=== PATIENT | female | born 1965 | race Caucasian/White ===

== ENCOUNTER 2017-07-20 12:34 | Emergency (ER) | payer OTHER ==
[~2017-07-20] VITALS: Ht 160 cm; Wt 84.8 kg
[2017-07-20 12:40] VITALS: BP 146/76
--- NOTE | 2017-07-20 14:32 | ED GI/GU/ABDOMINAL COMPLAINT ---
History of Present Illness General Chief Complaint: General Adult Stated Complaint: RT RIB PAIN Source: patient Exam Limitations: no limitations Vital Signs & Intake/Output Vital Signs & Intake/Output Vital Signs Date Time Temp Pulse Resp B/P B/P Pulse O2 O2 Flow FiO2 Mean Ox Delivery Rate 07/20 1537 Room Air 07/20 1240 97.1 86 20 146/76 98 Room Air Allergies Coded Allergies: NO KNOWN ALLERGIES (05/09/16) Reconcile Medications Cholecalciferol (Vitamin D3) 1,000 UNIT TABLET 1 TAB PO DAILY VITAMIN SUPPORT (Reported) Hydroxychlorquine (Plaquenil) 200 MG TABLET 1 TAB PO BID LUPUS (Reported) Methylprednisolone. (Medrol) 4 MG TAB.DS.PK 1 DP PO AD SHINGLES 6 on day 1 then reduce by one tablet daily until gone Multivitamin (Daily Multiple Vitamin) 1 EACH TABLET 1 TAB PO DAILY VITAMIN SUPPORT (Reported) Valacyclovir HCl (Valtrex) 1,000 MG TABLET 1 TAB PO TID SHINGLES Triage Note: PT TO ED FOR RUQ PAIN SINCE LAST NIGHT. WENT TO HER MD AND WAS SENT TO ED FOR EVAL. DENIES N/V/D. DENIES LUMA S/S. EVAL. DENIES N/V/D. DENIES LUMA S/S. Triage Nurses Notes Reviewed? yes ? n Is pt currently ? No Onset: Abrupt Duration: minute(s): (last night), day(s): Timing: recent history Quality/Severity: moderate, sharpness Location: right upper quadrant Activities at Onset: none Prior Abdominal Problems: none No Modifying Factors: none HPI: 51-year-old female comes into the emergency room for further evaluation of right upper abdominal pain. Symptoms been going on since last night. No fever. No chills. No vomiting. Denies any change in bowel movement. Denies any shortness of breath. Nothing seems to make the symptoms better or worse. Denies any rash. Comes in for further evaluation. (Thomas Gillespie) Past History Travel History Traveled to [place] past 21 day No Medical History Any Pertinent Medical History? see below for history Musculoskeletal: rheumatoid arthritis Endocrine: thyroid issue Surgical History Surgical History: No abdominal surgeries Psychosocial History What is your primary language Macanese Tobacco Use: Never used ETOH Use: denies use Illicit Drug Use: denies illicit drug use Family History Hx Contributory? No (Thomas Gillespie) Review of Systems Review of Systems Constitutional: Reports: no symptoms. EENTM: Reports: no symptoms. Respiratory: Reports: no symptoms. Cardiovascular: Reports: no symptoms. GI: Reports: see HPI. Genitourinary: Reports: no symptoms. Musculoskeletal: Reports: no symptoms. Skin: Reports: no symptoms. Neurological/Psychological: Reports: no symptoms. Hematologic/Endocrine: Reports: no symptoms. Immunologic/Allergic: Reports: no symptoms. All Other Systems: Reviewed and Negative (Thomas Gillespie) Physical Exam Physical Exam General Appearance: well developed/nourished, alert, awake, mild distress Head: atraumatic Eyes: Bilateral: normal appearance. Ears, Nose, Throat, Mouth: hearing grossly normal, moist mucous membrane Neck: normal inspection Respiratory: normal breath sounds, no respiratory distress Cardiovascular: regular rate/rhythm Gastrointestinal: soft, tenderness right side of abdomen, no guarding, no rebound tenderness, Back: normal inspection Neurologic/Psych: awake, alert, oriented x 3 Skin: intact, normal color, no rash appreciated over skin Core Measures ACS in differential dx? No Sepsis Present: No Sepsis Focused Exam Completed? No (Thomas Gillespie) Progress Differential Diagnosis: appendicitis, biliary colic, cholecystitis, diverticulitis, gastritis, peptic ulcer, SBO, UTI/pyelo, shingles, pe Plan of Care: Orders Procedure Date/time Status LIPASE 07/20 1431 Complete COMPREHENSIVE METABOLIC PANEL 07/20 1431 Complete CBC WITHOUT DIFFERENTIAL 07/20 1431 Complete AMYLASE 07/20 1431 Complete URINALYSIS 07/20 1317 Complete Laboratory Tests 07/20/17 1436: Anion Gap 10, Estimated GFR > 60, BUN/Creatinine Ratio 18.8, Glucose 98, Calcium 9.4, Total Bilirubin 0.5, AST 28, ALT 32, Alkaline Phosphatase 58, Total Protein 7.3, Albumin 4.1, Globulin 3.2, Albumin/Globulin Ratio 1.3, Amylase 53, Lipase 108, CBC w Diff NO MAN DIFF REQ, RBC 4.86, MCV 82.2, MCH 28.3, MCHC 34.4, RDW 14.0, MPV 7.3 L, Gran % 70.5, Lymphocytes % 19.2 L, Monocytes % 7.2, Eosinophils % 2.8, Basophils % 0.3, Absolute Granulocytes 5.4, Absolute Lymphocytes 1.5, Absolute Monocytes 0.6, Absolute Eosinophils 0.2, Absolute Basophils 0 07/20/17 1320: Urine Color YEL, Urine Clarity HAZY H, Urine pH 7.5, Ur Specific [place] 1.020, Urine Protein NEG, Urine Ketones NEG, Urine Nitrite NEG, Urine Bilirubin NEG, Urine Urobilinogen 0.2, Ur Leukocyte Esterase NEG, Ur Microscopic SEDIMENT EXAMINED, Urine RBC RARE, Urine WBC RARE, Urine Hemoglobin NEG, Urine Glucose NEG Diagnostic Imaging: Viewed by Me: CT Scan. Discussed w/RAD: CT Scan. Radiology Impression: PATIENT: JESSICA SOTO PRESENT AGE: 51 PATIENT ACCOUNT NO: [id number] : 63 LOCATION: [facility] ORDERING PHYSICIAN: Thomas FINLEY SERVICE DATE: 07/20/17 EXAM TYPE: CAT - CT ABD & PELVIS W/O IV CONTRAS EXAMINATION: CT ABDOMEN AND PELVIS WITHOUT CONTRAST CLINICAL INFORMATION: Right-sided abdominal pain. COMPARISON: None TECHNIQUE: Multidetector volumetric imaging was performed from the superior aspect of the liver through the pubic symphysis. Sagittal and coronal reformatted images were obtained on the technologist's workstation. DLP: 520.35 mGy-cm FINDINGS: LUNG BASES: The visualized lung bases are unremarkable. LIVER, GALLBLADDER, AND BILIARY TREE: 8mm hypodensity at the dome posterior right lobe liver segment 7. 1.6 cm hypodensity segment 4A left lobe of liver. These are likely hepatic cysts. There is no intrahepatic bile duct dilatation. Gallbladder is not visualized. There is no inflammation or fluid collection at the gallbladder fossa. PANCREAS: Unremarkable. SPLEEN: Unremarkable. ADRENAL GLANDS: Unremarkable. KIDNEYS AND URETERS: The kidneys are normal in size, shape, and attenuation. No hydronephrosis, hydroureter, or calculi seen. No perinephric stranding. BLADDER: Unremarkable. GASTROINTESTINAL TRACT: The small and large bowel are unremarkable. The appendix is not identified. MESENTERY: No inflammation. No free air or free fluid. ABDOMINAL WALL: No significant hernia is appreciated. LYMPH NODES: Normal. VASCULAR: Unremarkable. PELVIC VISCERA: Unremarkable. OSSEOUS STRUCTURES: Unremarkable. IMPRESSION: No acute abnormality CT scan abdomen and pelvis. DICTATED BY: Jc Novak MD DATE/TIME DICTATED:06/03 SURFACING TECHNICIAN:BRUNO DATE/TIME TRANSCRIBED:07/20/171501 CONFIDENTIAL, DO NOT COPY WITHOUT APPROPRIATE AUTHORIZATION. <Electronically signed in Other Vendor System> SIGNED BY: Jc Novak MD 07/20/17 1041 Initial ED EKG: none (Thomas Gillespie) Departure Departure Disposition: HOME OR SELF CARE Condition: Stable Clinical Impression Primary Impression: Abdominal pain Referrals: Jazzy PINEDA,Rosalio Kwan (PCP/Family) Additional Instructions: If you develop a rash on the right side of your abdomen filled prescription for Valtrex and Medrol Dosepak. Otherwise follow-up with your primary care doctor. Return if any concerns worsening symptoms. Please go over all results of today's visit with your primary care doctor. Contact your primary care doctor to let them know you were here in the emergency room. There may be nonspecific findings which may not be related to your visit today here in the emergency room but may require further evaluation and chronic monitoring by your primary care doctor. If you had a laceration today the chance of foreign body always remains. You should follow-up with your primary care doctor for recheck in 3-5 days for a wound check. If you had an x-ray done there is a chance that a fracture could have been missed on initial read and you should follow-up with your primary care doctor for repeat x-rays if symptoms persist. If your blood pressure was elevated here in the emergency room please have rechecked by [facility] primary care doctor within the next 48. If you were prescribed a narcotic here in the emergency room or any type of controlled substances you're not allowed to drive while taking this medication or operate any type of heavy machinery. Narcotics can make you feel lightheaded dizziness nausea and can cause constipation. You may need to sweet pickle maker a stool softener. Thank you for choosing [facility] emergency room. Please return to the emergency room immediately if you have any other concerns worsening of symptoms. Departure Forms: Customer Survey General Discharge Information Prescriptions: Current Visit Scripts Valacyclovir HCl (Valtrex) 1 TAB PO TID #21 TAB Methylprednisolone. (Medrol) 1 DP PO AD #1 DP 6 on day 1 then reduce by one tablet daily until gone Comments 07/20/2017 4:44:01 PM Patient clinically looks well. No acute findings. Nontoxic-appearing. Patient has no complaints of chest pain or shortness of breath. Pain is more abdomen then rib area. She points to below her rib area. No white count. Afebrile. No signs of cholecystitis. No signs of shingles rash. No suspicion for pulmonary embolus him at this time. Shared decision making. Patient was offered further evaluation with EKG chest x-ray and d-dimer to make sure there was no atypical cardiac presentation. Low suspicion for any type of cardiac or pulmonary pathology however no objective findings to explain the patient's pain. Patient is leaving for [place] tomorrow. She was provided a hard copy prescription in case a shingles rash develops over the next 72 hours. Shared decision making. Patient understands and agrees with plan of care. PERC negative other then age. low probability wells criteria. (Thomas Gillespie) PA/MANAGER DATA WAREHOUSING Co-Sign Statement Statement: ED Attending supervision documentation- [] I saw and evaluated the patient. I have also reviewed all the pertinent lab results and diagnostic results. I agree with the findings and the plan of care as documented in the PA's/MANAGER DATA WAREHOUSING's documentation. [X] I have reviewed the ED Record and agree with the PA's/MANAGER DATA WAREHOUSING's documentation. [] Additions or exceptions (if any) to the PAs/MANAGER DATA WAREHOUSING's note and plan are summarized below: [] (Donn Brewer DO)
[2017-07-20 15:05] LABS: ABSOLUTE BASOPHIL COUNT 0 /CUMM (0.0-0.2); ABSOLUTE EOSINOPHIL COUNT 0.2 /CUMM (0.0-0.7); ABSOLUTE GRANULOCYTE CT 5.4 /CUMM (1.4-6.5); ABSOLUTE LYMPH COUNT 1.5 /CUMM (1.2-3.4); ABSOLUTE MONOCYTE COUNT 0.6 /CUMM (0.10-0.60); BASOPHIL % 0.3 % (0.0-2.0); EOSINOPHIL % 2.8 % (0-5); GRANULOCYTE % 70.5 % (42.2-75.2); MEAN CORPUSCULAR HGB 28.3 PG (27.0-31.0); MEAN CORPUSCULAR HGB CONC 34.4 G/DL (33.0-37.0); MEAN CORPUSCULAR VOLUME 82.2 FL (81.0-99.0); MEAN PLATELET VOLUME 7.3 FL (7.4-10.4); PLATELET COUNT 357 /CUMM (130-400); RED BLOOD CELL CT 4.86 /CUMM (4.20-5.40); WHITE BLOOD CELL COUNT 7.7 /CUMM (4.8-10.8)
--- NOTE | 2017-07-20 15:15 | CT SCAN REPORT ---
EXAMINATION: CT ABDOMEN AND PELVIS WITHOUT CONTRAST CLINICAL INFORMATION: Right-sided abdominal pain. COMPARISON: None TECHNIQUE: Multidetector volumetric imaging was performed from the superior aspect of the liver through the pubic symphysis. Sagittal and coronal reformatted images were obtained on the technologist's workstation. DLP: 520.35 mGy-cm FINDINGS: LUNG BASES: The visualized lung bases are unremarkable. LIVER, GALLBLADDER, AND BILIARY TREE: 8mm hypodensity at the dome posterior right lobe liver segment 7. 1.6 cm hypodensity segment 4A left lobe of liver. These are likely hepatic cysts. There is no intrahepatic bile duct dilatation. Gallbladder is not visualized. There is no inflammation or fluid collection at the gallbladder fossa. PANCREAS: Unremarkable. SPLEEN: Unremarkable. ADRENAL GLANDS: Unremarkable. KIDNEYS AND URETERS: The kidneys are normal in size, shape, and attenuation. No hydronephrosis, hydroureter, or calculi seen. No perinephric stranding. BLADDER: Unremarkable. GASTROINTESTINAL TRACT: The small and large bowel are unremarkable. The appendix is not identified. MESENTERY: No inflammation. No free air or free fluid. ABDOMINAL WALL: No significant hernia is appreciated. LYMPH NODES: Normal. VASCULAR: Unremarkable. PELVIC VISCERA: Unremarkable. OSSEOUS STRUCTURES: Unremarkable. IMPRESSION: No acute abnormality CT scan abdomen and pelvis.
[2017-07-20] MEDS ORDERED: PLAQUENIL200 M1 PO (15:28)
[2017-07-20] MEDS ORDERED: DAILY MULTIPLE1 EACH PO (15:29)
[2017-07-20] MEDS ORDERED: VITAMIN D31000 UNI2 PO (15:29)
[2017-07-20] MEDS ORDERED: VALTREX1000 MG PO (15:55)
[2017-07-20] MEDS ORDERED: MEDROL4 M2 PO (15:55)
== END 2017-07-20 16:09 ==
LOC: ERH 12:34
PROVIDERS: Physician Assistant Medical
DX: R10.11 Right upper quadrant pain (principal)
CPT/HCPCS: 74176; 81001